=== PATIENT | female | born 1945 | race Caucasian/White ===

== ENCOUNTER 2017-07-05 13:03 | Outpatient (CLI) | payer MEDICARE ==
[2017-07-05 14:35] LABS: Hemoglobin 11.9 g/dL (12.0-16.0); Mean Corpuscular HGB CONC 33.9 g/dL (32.0-36.0); Mean Corpuscular Hemoglobin 30.4 pg (27.0-31.0); Mean Corpuscular Volume 89.7 fl (81.0-99.0); Mean Platelet Volume 7.4 fL (7.4-10.4); Platelet Count 373 thou/uL (130-400); RBC Distribution Width 12.8 % (11.5-14.5); White Blood Cell (WBC) Count 10.6 thou/uL (4.8-10.8)
[2017-07-05 14:40] LABS: INR-International Normal Ratio 1.8; Prothrombin Time 21.1 SEC (12.0-14.7)
[2017-07-05 15:03] LABS: Anion Gap 12 mmol/L (10-20); BUN (Urea Nitrogen) 20 mg/dL (9.8-20.1); Calc. Creatinine Clearance 0 mL/min (70-130); Calcium 9.1 mg/dL (7.8-10.44); Carbon Dioxide 28 mmol/L (23-31); Chloride 102 mmol/L (98-107); Estimated GFR-MDRD 84; Glucose 81 mg/dL (83-110); Potassium 4.2 mmol/L (3.5-5.1); Sodium 138 mmol/L (136-145)
--- NOTE | 2017-07-05 15:54 | EKG ---
Test Reason : Blood Pressure : / mmHG Vent. Rate : 060 BPM Atrial Rate : 060 BPM P-R Int : 152 ms QRS Dur : 086 ms QT Int : 448 ms P-R-T Axes : 033 008 037 degrees QTc Int : 448 ms Sinus rhythm with Premature supraventricular complexes Anterior infarct , age undetermined cannot be excluded Abnormal ECG Confirmed by MILADY DORAN ([id number]) on 07/05/2017 3:53:08 PM Referred By: GUILLERMINA Confirmed By:MILADY DORAN
== END 2017-07-05 13:04 | disposition home or self-care (01) ==
LOC: LABBT 13:03
PROVIDERS: ATTEND Internal Medicine Cardiovascular Disease
DX: Z01.818 Encounter for other preprocedural examination (principal); I48.91 Unspecified atrial fibrillation
CPT/HCPCS: 80048; 85027; 85610; 85730; 93005; 93010

== ENCOUNTER 2017-07-07 06:47 | Day surgery (SDC) | payer MEDICARE ==
[2017-07-05 13:25] VITALS: BMI 36.1
[2017-07-07] MEDS ORDERED: Lidocaine 1% (PF) 30 ML VIAL ONE (10:07)
[2017-07-07] MEDS ORDERED: PHENYLEPHRINE-NS 100 MCG/ML 10 ML SYRINGE ONE ×2 (10:16→15:06)
[2017-07-07] MEDS ORDERED: Phenylephrine HCL 10 MG/ML VIAL ONE (10:16)
[2017-07-07] MEDS ORDERED: Fentanyl 100 MCG/2 ML VIAL ONE ×2 (10:16→13:49)
[2017-07-07] MEDS ORDERED: Furosemide 40 MG/4 ML VIAL ONE (10:36)
[2017-07-07] MEDS ORDERED: Heparin 10,000 UNITS/1 ML VIAL ONE (10:36)
[2017-07-07] MEDS ORDERED: Protamine Sulfate 50 MG/5 ML VIAL ONE (10:36)
[2017-07-07] MEDS ORDERED: Isoproterenol 0.2 MG/1 ML AMP ONE ×2 (11:30→11:34)
[2017-07-07] MEDS ORDERED: Promethazine HCl 25 MG/ML VIAL SLOW IVP PRN (13:11)
[2017-07-07] MEDS ORDERED: Ondansetron HCl/PF 4 MG/2 ML Vial IVP PRN ×2 (13:11→14:34)
[2017-07-07] MEDS ORDERED: Morphine Sulfate 2 MG/ML SYRINGE SLOW IVP PRN (13:11)
[2017-07-07] MEDS ORDERED: Promethazine HCl 25 MG/ML VIAL ONE (13:26)
--- NOTE | 2017-07-07 14:26 | OP ---
DATE OF PROCEDURE: 07/07/2017 ELECTROPHYSIOLOGY PROCEDURE NOTE PROCEDURES: 1. Comprehensive EP testing with three dimensional mapping and ablation of atrial fibrillation. 2. Transseptal catheterization x2. 3. Intracardiac echocardiography. 4. Cardiac medication infusion. CLINICAL INDICATION: Refractory recurrent atrial arrhythmias despite previous ablation and previous antiarrhythmic suppression. COMPUTER CONSOLE OPERATOR: Marky Epps M.D. ASA CLASSIFICATION: III. ANESTHESIA: General endotracheal per Anesthesiology. ADDITIONAL CARDIAC MEDICATIONS: Isoproterenol 10 mcg per minute infusion. Total heparin given 14,00 0 units. Total protamine given 40 mg. ACUTE COMPLICATIONS: None apparent. METHODS: After informed consent was obtained, the patient was taken to the EP lab in the fasting sta te. Both groins were prepped and draped using ultrasound guidance, the right and left femoral veins were accessed and wires were inserted into the central venous systems and 11 [place] and 8 [place] sainz ths were placed in the left groin. Two 8 [place] sheaths were placed in right groin. All 8 [place] sh eaths were then replaced by long sheath for catheter stability. A circular and ablation catheter wer e placed in the right groin and advanced to the right atrium and the coronary sinus. A 3D map was ob tained. An intracardiac echo probe was placed in the left groin and advanced to the right atrium and right ventricle for imaging. A 20-pole catheter was placed in the left groin and advanced into the coronary sinus for imaging. An esophageal temperature probe was placed in the esophagus, co-located with a sensored catheter for positioning and location within a 3D system. The patient then underwent heparinization and transseptal catheterization was performed on two occasions. This used ultrasound and 3D mapping guidance and 3D map was obtained at the left atrium. The patient had isolated veins from the previous ablation; however, the posterior wall still had some antral reconnection which was re-ablated. Afterwards, isoproterenol was administered and consistent PACs were seen from the rivers ry sinus, although no sustained arrhythmias were seen there. This was empirically ablated. The dist al CS was isolated and the proximal CS was debulked. No further arrhythmias were seen. Catheter was then withdrawn. Heparin was reversed. Sheaths were pulled. Hemostasis was achieved with suture cl osure. RESULTS: 1. Baseline intervals, TX interval 153 milliseconds, QRS interval 82 milliseconds, QT interval 455 m illiseconds, HV interval 43 milliseconds. 2. Atrial function. Patient had intact isolation of the pulmonary veins from previous ablation ____ _. On the posterior wall, the patient still had reconnection of this area which was re-isolated. Con sistent firing was seen from the coronary sinus which was also ablated and isolated as described in m ethod section. IMPRESSION: 1. Successful re-isolation of the posterior wall, antral aspects of the pulmonary veins. 2. Successful distal CS ablation with debulking of the remainder of the CS. RECOMMENDATION: Continue with oral anticoagulation for 3 months.
[2017-07-07] MEDS ORDERED: Bisacodyl 10 MG SUPP PR PRN (14:34)
[2017-07-07] MEDS ORDERED: Mag-Al 1200 mg/1200 mg/30 ML UDCUP PO PRN (14:34)
[2017-07-07] MEDS ORDERED: Bisacodyl 5 MG TAB PO PRN (14:34)
[2017-07-07] MEDS ORDERED: Temazepam 15 MG CAP PO PRN (14:34)
[2017-07-07] MEDS ORDERED: Nitroglycerin 0.4 MG TAB (25 Tab Bottle) SL PRN (14:34)
[2017-07-07] MEDS ORDERED: Silver Sulfadiazine 1% Cream 50 GM JAR TOP PRN (14:34)
[2017-07-07] MEDS ORDERED: Acetaminophen 325 MG TAB PO PRN (14:34)
[2017-07-07] MEDS ORDERED: diphenhydrAMINE 25 MG CAP PO PRN (14:34)
[2017-07-07] MEDS ORDERED: cloNIDine 0.1 MG TAB PO PRN (14:38)
[2017-07-07] MEDS ORDERED: Melatonin 3 MG TAB PO PRN (14:43)
[2017-07-07] MEDS ORDERED: Lisinopril 20 MG TAB PO PRN (14:43)
[2017-07-07] MEDS ORDERED: tiZANidine HCl 4 MG TAB PO PRN (14:47)
[2017-07-07] MEDS ORDERED: Ondansetron HCl/PF 4 MG/2 ML Vial ONE (15:06)
[2017-07-07] MEDS ORDERED: Heparin 30,000 units/30 ml VIAL ONE (15:06)
[2017-07-07] MEDS ORDERED: Dexamethasone 20 MG/5 ML VIAL ONE (15:06)
[2017-07-07] MEDS ORDERED: Propofol 200 MG/20 ML VIAL ONE (15:06)
[2017-07-07] MEDS ORDERED: Potassium Chloride 20 MEQ TAB PO SCH (16:00)
[2017-07-07] MEDS ORDERED: Furosemide 40 MG/4 ML VIAL SLOW IVP SCH (16:00)
[2017-07-07] MEDS: HYDROcodone/Acetaminophen 5/325 mg Tablet PO PRN ×2 (16:04→23:42)
[2017-07-07] MEDS: traMADol HCl 50 MG TAB PO PRN (19:07)
[2017-07-07] MEDS: Hydroxychloroquine Sulfate 200 MG TAB PO SCH (20:38)
[2017-07-07] MEDS: sulfaSALAzine 500 MG TAB PO SCH (20:38)
[2017-07-07] MEDS: Amlodipine 5 MG TAB PO SCH (20:43)
[2017-07-07] MEDS ORDERED: metFORMIN XR 500 MG TAB PO SCH (21:00)
[2017-07-07] MEDS ORDERED: Atorvastatin Calcium 20 MG TAB PO SCH (21:00)
[2017-07-08] MEDS: traMADol HCl 50 MG TAB PO PRN (03:21)
[2017-07-08] MEDS ORDERED: Levothyroxine Sodium 25 MCG TAB PO SCH (06:00)
[2017-07-08 08:25] VITALS: BP 138/65; TEMP 98.5
[2017-07-08] MEDS ORDERED: Aspirin 81 mg Enteric Coated Tablet PO SCH (09:00)
[2017-07-08] MEDS ORDERED: Potassium Chloride 10 MEQ TAB PO SCH (09:00)
[2017-07-08] MEDS ORDERED: Rivaroxaban 10 MG TAB PO SCH (09:00)
[2017-07-08] MEDS ORDERED: Folic Acid 1 MG TAB PO SCH (09:00)
[2017-07-08] MEDS ORDERED: Furosemide 40 MG TAB PO SCH (09:00)
[2017-07-08] MEDS: Amlodipine 5 MG TAB PO SCH (09:08)
[2017-07-08] MEDS: Hydroxychloroquine Sulfate 200 MG TAB PO SCH (09:09)
[2017-07-08] MEDS: sulfaSALAzine 500 MG TAB PO SCH (09:10)
[2017-07-08] MEDS: HYDROcodone/Acetaminophen 5/325 mg Tablet PO PRN (09:16)
--- NOTE | 2017-07-08 22:30 | DIS ---
DATE OF SERVICE: 07/08/2017 ADMITTING DIAGNOSES: 1. Persistent atrial fibrillation. A. Prior pulmonary venous isolation procedure 10/03/[address] Epps. B. Atypical atrial flutter, failing sotalol therapy prompting a repeat pulmonary venous isolation pr luis eduardodure on 07/07/2017 with re-isolation of the posterior wall. C. Ablation of the coronary sinus, premature atrial contractions. The patient remained in sinus rhy thm throughout the procedure. HOSPITAL COURSE: Ms. Leach remained stable overnight after her procedure. She had no significant g roin oozing issues, which . There is no stroke-like symptoms. No . No fevers, chills, or coughs. No chest pains. PHYSICAL EXAMINATION: VITAL SIGNS: Blood pressure is 132/65, pulse 74, respirations 16, temperature 98.5 degrees Fahrenhei t, O2 sats are 95% on room air. GENERAL: Reveals alert and oriented woman in no apparent distress. NECK: No jugular venous distention. CHEST: Coarse without crackles. HEART: Sounds are regular to rate and rhythm. No murmur, gallop, or rub. ABDOMEN: Benign. Bowel sounds present. EXTREMITIES: Lower extremities without edema, clubbing, or cyanosis. DATABASE: Telemetry strips reveal sinus rhythm. No significant ST-T changes. Infrequent PACs. LABORATORY DATA: None new. ASSESSMENT AND PLAN: Mrs. Leach is a pleasant 71-year-old woman, undergoing a re-do left atrial abl ation procedure yesterday, tolerated the procedure well. She is back on her anticoagulants and resum ing all her prior medications as well. She was given prescriptions for Lasix 4 mg daily, potassium 2 0 mEq daily for 3 days and then as needed, Carafate 1 g for q.6 hours for 14 days and Protonix 40 mg daily. We advised her though to stop sotalol, which could be resumed if necessary for rhythm control in the future. Routine followup in the office in 6 weeks is requested. All questions of patient's, nursing staff, and the family were answered. I spent a total of 45 minutes for completing the above.
[2017-07-13] MEDS ORDERED: Methotrexate Sodium 2.5 MG TAB PO SCH (09:00)
== END 2017-07-08 14:06 | disposition home or self-care (01) ==
LOC: CCL 06:47 → 2SW 15:26 → CCL 07-08 14:06
PROVIDERS: ATTEND Internal Medicine Cardiovascular Disease
PROC: 4A023FZ Measurement of Cardiac Rhythm, Percutaneous Approach (ICD-10-PCS; principal; 2017-07-07)
PROC: 02K83ZZ Map Conduction Mechanism, Percutaneous Approach (ICD-10-PCS; 2017-07-07)
DX: I48.1 Persistent atrial fibrillation (principal); I25.10 Atherosclerotic heart disease of native coronary artery without angina pectoris; I10 Essential (primary) hypertension; E78.2 Mixed hyperlipidemia; I65.23 Occlusion and stenosis of bilateral carotid arteries; E03.9 Hypothyroidism, unspecified; M06.9 Rheumatoid arthritis, unspecified
CPT/HCPCS: 76942; 82962; 85347 ×2; 93005; 93613; 93623; 93653; 93662; 96374 ×2; C1731; C1732 ×3; C1759; C1769; 36416; A4216; J1100; J1644; J1940; J2001; J2370; J2405; J2550; J2704; J2720; J3010

== ENCOUNTER 2019-10-11 10:54 | Outpatient (CLI) | payer MEDICARE ==
--- NOTE | 2019-10-11 11:56 | MMO ---
Bilateral MAMMO Bilat Screen [facility]. CLINICAL HISTORY: Patient is 73 years old and is seen for screening. The patient has no family history of breast cancer. The patient has no personal history of cancer. VIEWS: The views performed were: bilateral craniocaudal with tomosynthesis and bilateral mediolateral oblique with tomosynthesis. FILMS COMPARED: The present examination has been compared to prior imaging studies performed at [facility] on 05/20/2013, and at [facility] on 12/15/2016. This study has been interpreted with the assistance of computer-aided detection. MAMMOGRAM FINDINGS: There are scattered fibroglandular densities. Finding 1: There are stable benign appearing calcifications seen in both breasts. Finding 2: There are stable intramammary lymph nodes seen in both breasts. There are no suspicious masses, suspicious calcifications, or new areas of architectural distortion. IMPRESSION: THERE IS NO MAMMOGRAPHIC EVIDENCE OF MALIGNANCY. A ROUTINE FOLLOW-UP MAMMOGRAM IN 1 YEAR IS RECOMMENDED. THE RESULTS OF THIS EXAM WERE SENT TO THE PATIENT. ACR BI-RADS Category 2 - Benign finding MAMMOGRAPHY NOTE: 1. A negative mammogram report should not delay a biopsy if a dominant of clinically suspicious mass is present. 2. Approximately 10% to 15% of breast cancers are not detected by mammography. 3. Adenosis and dense breasts may obscure an underlying neoplasm. Reported by: JOSUE YING MD Electonically Signed: [id number]
== END 2019-10-11 10:55 | disposition home or self-care (01) ==
LOC: BICMAMMO 10:54
PROVIDERS: ATTEND Physician Assistant
DX: Z12.31 Encounter for screening mammogram for malignant neoplasm of breast (principal)
CPT/HCPCS: 77063; 77067

== ENCOUNTER 2021-08-18 13:14 | Outpatient (CLI) | payer MEDICARE, OTHER ==
[~2021-08-18 13:14] MED LIST: Magnevist 469MG/ML 20 ML VIAL ONE
== END 2021-08-18 13:15 | disposition home or self-care (01) ==
LOC: TBSIIMAG 13:14
PROVIDERS: ATTEND Neurological Surgery
DX: H93.A9 Pulsatile tinnitus, unspecified ear (principal); J34.89 Other specified disorders of nose and nasal sinuses
CPT/HCPCS: 70553; A9579

== ENCOUNTER 2022-03-14 11:06 | Inpatient (IN) | payer MEDICARE, OTHER ==
[2022-03-14 16:06] LABS: #Eosinphils 0.2 thou/uL (0.0-0.7); #Lymphocytes 1.7 thou/uL (1.20-3.40); #Monocytes 1.5 thou/uL (0.11-0.59); #Neutrophils 7.9 thou/uL (1.40-6.50); %Basophils 0.3 % (0.0-1.0); %Eosinophils 2.1 % (0.0-10.0); %Lymphocytes 14.9 % (21.0-51.0); %Monocytes 12.8 % (0.0-10.0); %Neutrophils 69.8 % (42.0-75.0); Hemoglobin 10.8 g/dL (12.0-16.0); Mean Corpuscular HGB CONC 34.3 g/dL (32.0-36.0); Mean Corpuscular Hemoglobin 33.5 pg (27.0-31.0); Mean Corpuscular Volume 97.7 fl (78.0-98.0); Mean Platelet Volume 8.1 fL (7.4-10.4); Platelet Count 306 thou/uL (130-400); RBC Distribution Width 12.9 % (11.5-14.5); Red Blood Cell (RBC) Count 3.23 mill/uL (4.20-5.40); White Blood Cell (WBC) Count 11.3 thou/uL (4.8-10.8)
[2022-03-14 16:25] LABS: ALT (SGPT) 10 U/L (8-55); AST (SGOT) 14 U/L (5-34); Albumin 3.9 g/dL (3.4-4.8); Alkaline Phosphatase 65 U/L (40-110); Anion Gap 17 mmol/L (10-20); BUN (Urea Nitrogen) 23 mg/dL (9.8-20.1); Bilirubin, Total 0.4 mg/dL (0.2-1.2); Calc. Creatinine Clearance 0 mL/min (70-130); Calcium 7.7 mg/dL (7.8-10.44); Carbon Dioxide 27 mmol/L (23-31); Chloride 103 mmol/L (98-107); Estimated GFR 60; Globulin 2.5 g/dL (2.4-3.5); Glucose 84 mg/dL (83-110); Potassium 4.1 mmol/L (3.5-5.1); Protein, Total 6.4 g/dL (5.8-8.1); Sodium 143 mmol/L (136-145)
[2022-03-14] MEDS ORDERED: HYDROcodone/Acetaminophen 5/325 mg Tablet PO PRN (17:28)
[2022-03-14] MEDS ORDERED: HumaLOG 300 UNITS/3 ML VIAL SC PRN (17:33)
[2022-03-14] MEDS ORDERED: Dextrose 5% in Water 1,000 ML IV PRN (17:33)
[2022-03-14] MEDS ORDERED: Dextrose 50% Abboject 50 ML SYRINGE SLOW IVP PRN (17:33)
[2022-03-14] MEDS ORDERED: Ketorolac Tromethamine 30 MG/ML VIAL ONE ×2 (17:45→17:59)
[2022-03-14 20:39] VITALS: BMI 39.5
[2022-03-15] MEDS ORDERED: Morphine 4 MG/ML VIAL SLOW IVP PRN (03:37)
[2022-03-15] MEDS: Ondansetron PF 4 MG/2 ML Vial IVP PRN (03:53)
[2022-03-15] MEDS: Acetaminophen 325 MG TAB PO PRN (03:57)
[2022-03-15 06:44] LABS: Anion Gap 16 mmol/L (10-20); BUN (Urea Nitrogen) 32 mg/dL (9.8-20.1); Calc. Creatinine Clearance 68 mL/min (70-130); Calcium 7.4 mg/dL (7.8-10.44); Carbon Dioxide 26 mmol/L (23-31); Chloride 103 mmol/L (98-107); Estimated GFR 48; Glucose 100 mg/dL (83-110); Potassium 3.9 mmol/L (3.5-5.1); Sodium 141 mmol/L (136-145)
[2022-03-15 06:53] LABS: #Eosinphils 0.2 thou/uL (0.0-0.7); #Lymphocytes 1.2 thou/uL (1.20-3.40); #Monocytes 0.9 thou/uL (0.11-0.59); #Neutrophils 7.8 thou/uL (1.40-6.50); %Basophils 0.3 % (0.0-1.0); %Eosinophils 2.3 % (0.0-10.0); %Monocytes 8.6 % (0.0-10.0); %Neutrophils 76.8 % (42.0-75.0); Hemoglobin 8.9 g/dL (12.0-16.0); Mean Corpuscular HGB CONC 32.2 g/dL (32.0-36.0); Mean Corpuscular Hemoglobin 31.7 pg (27.0-31.0); Mean Corpuscular Volume 98.5 fl (78.0-98.0); Mean Platelet Volume 7.9 fL (7.4-10.4); Platelet Count 318 thou/uL (130-400); Red Blood Cell (RBC) Count 2.81 mill/uL (4.20-5.40); White Blood Cell (WBC) Count 10.1 thou/uL (4.8-10.8)
[2022-03-15] MEDS ORDERED: Metoprolol Tartrate 5 MG/5 ML VIAL IVP PRN (08:41)
[2022-03-15] MEDS ORDERED: Aspirin 325 mg Enteric Coated Tablet PO SCH (08:45)
[2022-03-15] MEDS ORDERED: Lactated Ringer's 250 ML IV SCH (08:45)
[2022-03-15] MEDS ORDERED: Enoxaparin Sodium 40 MG/0.4 ML SYRINGE SC SCH (09:00)
[2022-03-15] MEDS: Aspirin 81 mg Enteric Coated Tablet PO SCH (09:36)
[2022-03-15] MEDS: Metoprolol Tartrate 5 MG/5 ML VIAL IVP SCH ×2 (09:38→09:43)
[2022-03-15] MEDS: Enoxaparin Sodium 100 MG/ML SYRINGE SC SCH ×2 (09:43→20:35)
[2022-03-15] MEDS ORDERED: Methotrexate Sodium 2.5 MG TAB PO SCH (10:15)
[2022-03-15] MEDS ORDERED: HYDROcodone/Acetaminophen 5/325 mg Tablet PO PRN (11:03)
[2022-03-15] MEDS ORDERED: Magnesium 2 GM/50 ML(in water) 2 GM in Premix Bag 1 BAG IVPB SCH ×2 (12:45→18:00)
[2022-03-15] MEDS ORDERED: Electrolyte Replacement Protocol 1 EACH FS SCH (13:30)
[2022-03-15] MEDS ORDERED: Magnesium Sulfate In Water 4 GM in Premix Bag 1 BAG IVPB SCH (14:15)
[2022-03-15] MEDS ORDERED: Electrolyte Replacement Protocol FS PRN (14:15)
[2022-03-15] MEDS ORDERED: Magnesium Sulfate 4 GM in Sodium Chloride 0.9% 250 ML 250 ML IVPB SCH (14:30)
[2022-03-15] MEDS: HYDROcodone/Acetaminophen 5/325 mg Tablet PO PRN ×2 (14:56→20:33)
[2022-03-15] MEDS: Vancomycin 1.5 GRAM/300 ML BAG 1.5 GM in Premix Bag 1 BAG IVPB SCH (15:22)
[2022-03-15] MEDS: Metoprolol Tartrate 25 MG TAB PO SCH (20:34)
[2022-03-15] MEDS: Atorvastatin Calcium 20 MG TAB PO SCH (20:35)
[2022-03-15] MEDS: Cefepime 1 GM in Sodium Chloride 0.9% 100 ML IVPB SCH (20:35)
[2022-03-15] MEDS: metFORMIN XR 500 MG TAB PO SCH (20:58)
[2022-03-15] MEDS ORDERED: Vancomycin 1 GM in Premix Bag 1 BAG IVPB SCH (21:00)
[2022-03-16] MEDS: HYDROcodone/Acetaminophen 5/325 mg Tablet PO PRN ×2 (04:34→10:29)
[2022-03-16] MEDS: Levothyroxine Sodium 25 MCG TAB PO SCH (04:35)
[2022-03-16 04:57] LABS: #Eosinphils 0.2 thou/uL (0.0-0.7); #Lymphocytes 0.8 thou/uL (1.20-3.40); #Neutrophils 8.7 thou/uL (1.40-6.50); %Basophils 0.5 % (0.0-1.0); %Eosinophils 1.7 % (0.0-10.0); %Lymphocytes 7.2 % (21.0-51.0); %Monocytes 8.9 % (0.0-10.0); %Neutrophils 81.7 % (42.0-75.0); Hemoglobin 9.5 g/dL (12.0-16.0); Mean Corpuscular HGB CONC 32.5 g/dL (32.0-36.0); Mean Corpuscular Volume 98.5 fl (78.0-98.0); Mean Platelet Volume 8.2 fL (7.4-10.4); Platelet Count 321 thou/uL (130-400); RBC Distribution Width 12.9 % (11.5-14.5); Red Blood Cell (RBC) Count 2.95 mill/uL (4.20-5.40); White Blood Cell (WBC) Count 10.7 thou/uL (4.8-10.8)
[2022-03-16 05:20] LABS: Magnesium 2.1 mg/dL (1.6-2.6); Phosphorus 2.8 mg/dL (2.3-4.7)
[2022-03-16 05:24] LABS: ALT (SGPT) 9 U/L (8-55); AST (SGOT) 12 U/L (5-34); Albumin 3.4 g/dL (3.4-4.8); Alkaline Phosphatase 60 U/L (40-110); Anion Gap 13 mmol/L (10-20); BUN (Urea Nitrogen) 27 mg/dL (9.8-20.1); Bilirubin, Total 0.5 mg/dL (0.2-1.2); Calc. Creatinine Clearance 93 mL/min (70-130); Calcium 7.8 mg/dL (7.8-10.44); Carbon Dioxide 27 mmol/L (23-31); Chloride 102 mmol/L (98-107); Estimated GFR 71; Globulin 2.8 g/dL (2.4-3.5); Glucose 113 mg/dL (83-110); Protein, Total 6.2 g/dL (5.8-8.1); Sodium 138 mmol/L (136-145)
[2022-03-16] MEDS ORDERED: Diclofenac Sodium 50 MG DR TAB PO PRN (08:19)
[2022-03-16] MEDS: Cefepime 1 GM in Sodium Chloride 0.9% 100 ML IVPB SCH ×2 (09:04→21:11)
[2022-03-16] MEDS: Enoxaparin Sodium 100 MG/ML SYRINGE SC SCH ×2 (09:04→21:12)
[2022-03-16] MEDS: Metoprolol Tartrate 25 MG TAB PO SCH ×2 (09:05→21:12)
[2022-03-16] MEDS: Folic Acid 1 MG TAB PO SCH (09:05)
[2022-03-16] MEDS: Aspirin 81 mg Enteric Coated Tablet PO SCH (09:05)
[2022-03-16] MEDS: metFORMIN XR 500 MG TAB PO SCH ×2 (09:06→21:12)
[2022-03-16] MEDS: Hydroxychloroquine Sulfate 200 MG TAB PO SCH (09:07)
[2022-03-16] MEDS: Cholecalciferol 1,000 UNITS (25 MCG) TAB PO SCH (09:16)
[2022-03-16] MEDS: Vancomycin 1.5 GRAM/300 ML BAG 1.5 GM in Premix Bag 1 BAG IVPB SCH (14:33)
[2022-03-16] MEDS: Acetaminophen 325 MG TAB PO PRN (15:20)
[2022-03-16] MEDS: Morphine 4 MG/ML VIAL SLOW IVP PRN ×2 (16:14→22:43)
[2022-03-16] MEDS: Ondansetron PF 4 MG/2 ML Vial IVP PRN ×2 (16:14→22:43)
[2022-03-16] MEDS ORDERED: predniSONE 20 MG TAB PO SCH (17:30)
[2022-03-16] MEDS: Atorvastatin Calcium 20 MG TAB PO SCH (21:12)
[2022-03-17 04:27] LABS: #Lymphocytes 0.3 thou/uL (1.20-3.40); #Monocytes 0.4 thou/uL (0.11-0.59); #Neutrophils 9.1 thou/uL (1.40-6.50); %Basophils 0.2 % (0.0-1.0); %Eosinophils 0.5 % (0.0-10.0); %Lymphocytes 3.2 % (21.0-51.0); %Neutrophils 92.2 % (42.0-75.0); Hemoglobin 9.1 g/dL (12.0-16.0); Mean Corpuscular HGB CONC 32.8 g/dL (32.0-36.0); Mean Corpuscular Hemoglobin 32.1 pg (27.0-31.0); Mean Corpuscular Volume 97.7 fl (78.0-98.0); Platelet Count 323 thou/uL (130-400); RBC Distribution Width 12.7 % (11.5-14.5); Red Blood Cell (RBC) Count 2.84 mill/uL (4.20-5.40); White Blood Cell (WBC) Count 9.8 thou/uL (4.8-10.8)
[2022-03-17 04:46] LABS: ALT (SGPT) 11 U/L (8-55); AST (SGOT) 11 U/L (5-34); Albumin 3.4 g/dL (3.4-4.8); Alkaline Phosphatase 63 U/L (40-110); Anion Gap 12 mmol/L (10-20); BUN (Urea Nitrogen) 23 mg/dL (9.8-20.1); Bilirubin, Total 0.4 mg/dL (0.2-1.2); Calc. Creatinine Clearance 93 mL/min (70-130); Calcium 8.1 mg/dL (7.8-10.44); Carbon Dioxide 28 mmol/L (23-31); Chloride 102 mmol/L (98-107); Estimated GFR 71; Globulin 2.4 g/dL (2.4-3.5); Glucose 146 mg/dL (83-110); Potassium 5.4 mmol/L (3.5-5.1); Protein, Total 5.8 g/dL (5.8-8.1); Sodium 137 mmol/L (136-145)
[2022-03-17] MEDS: Levothyroxine Sodium 25 MCG TAB PO SCH (05:39)
[2022-03-17] MEDS: predniSONE 20 MG TAB PO SCH (08:51)
[2022-03-17] MEDS: Folic Acid 1 MG TAB PO SCH (08:52)
[2022-03-17] MEDS: Aspirin 81 mg Enteric Coated Tablet PO SCH (08:52)
[2022-03-17] MEDS: Metoprolol Tartrate 25 MG TAB PO SCH ×2 (08:52→21:12)
[2022-03-17] MEDS: metFORMIN XR 500 MG TAB PO SCH ×2 (08:53→21:10)
[2022-03-17] MEDS: Hydroxychloroquine Sulfate 200 MG TAB PO SCH (08:53)
[2022-03-17] MEDS: Cefepime 1 GM in Sodium Chloride 0.9% 100 ML IVPB SCH (08:53)
[2022-03-17] MEDS: Enoxaparin Sodium 100 MG/ML SYRINGE SC SCH (08:54)
[2022-03-17] MEDS: Cholecalciferol 1,000 UNITS (25 MCG) TAB PO SCH (08:58)
[2022-03-17] MEDS ORDERED: Morphine 4 MG/ML VIAL SLOW IVP PRN (10:32)
[2022-03-17] MEDS: HYDROcodone/Acetaminophen 5/325 mg Tablet PO PRN ×3 (11:18→21:11)
[2022-03-17] MEDS: Atorvastatin Calcium 20 MG TAB PO SCH (21:11)
[2022-03-17] MEDS: Apixaban 5 MG TAB PO SCH (21:14)
[2022-03-18] MEDS ORDERED: diphenhydrAMINE 25 MG CAP PO SCH (03:30)
[2022-03-18] MEDS: Levothyroxine Sodium 25 MCG TAB PO SCH (04:48)
[2022-03-18] MEDS: HYDROcodone/Acetaminophen 5/325 mg Tablet PO PRN (04:48)
[2022-03-18 05:36] LABS: #Eosinphils 0.1 thou/uL (0.0-0.7); #Lymphocytes 1.2 thou/uL (1.20-3.40); #Monocytes 1.2 thou/uL (0.11-0.59); #Neutrophils 10.4 thou/uL (1.40-6.50); %Basophils 0.4 % (0.0-1.0); %Eosinophils 1.1 % (0.0-10.0); %Lymphocytes 9.4 % (21.0-51.0); %Monocytes 9.3 % (0.0-10.0); %Neutrophils 79.8 % (42.0-75.0); Hemoglobin 9.4 g/dL (12.0-16.0); Mean Corpuscular Hemoglobin 33.1 pg (27.0-31.0); Platelet Count 368 thou/uL (130-400); RBC Distribution Width 12.6 % (11.5-14.5); Red Blood Cell (RBC) Count 2.85 mill/uL (4.20-5.40); White Blood Cell (WBC) Count 13.1 thou/uL (4.8-10.8)
[2022-03-18 06:08] LABS: ALT (SGPT) 13 U/L (8-55); AST (SGOT) 13 U/L (5-34); Albumin 3.3 g/dL (3.4-4.8); Alkaline Phosphatase 70 U/L (40-110); Anion Gap 11 mmol/L (10-20); BUN (Urea Nitrogen) 23 mg/dL (9.8-20.1); Bilirubin, Total 0.2 mg/dL (0.2-1.2); Calc. Creatinine Clearance 96 mL/min (70-130); Carbon Dioxide 26 mmol/L (23-31); Chloride 103 mmol/L (98-107); Estimated GFR 74; Glucose 96 mg/dL (83-110); Potassium 4.6 mmol/L (3.5-5.1); Protein, Total 6.3 g/dL (5.8-8.1); Sodium 135 mmol/L (136-145); Uric Acid 7.3 mg/dL (2.6-6.0)
[2022-03-18] MEDS: predniSONE 20 MG TAB PO SCH (08:53)
[2022-03-18] MEDS: Apixaban 5 MG TAB PO SCH (08:54)
[2022-03-18] MEDS: Folic Acid 1 MG TAB PO SCH (08:54)
[2022-03-18] MEDS: Hydroxychloroquine Sulfate 200 MG TAB PO SCH (08:54)
[2022-03-18] MEDS: metFORMIN XR 500 MG TAB PO SCH (08:54)
[2022-03-18] MEDS: Aspirin 81 mg Enteric Coated Tablet PO SCH (08:55)
[2022-03-18] MEDS: Cholecalciferol 1,000 UNITS (25 MCG) TAB PO SCH (08:55)
[2022-03-18] MEDS: Metoprolol Tartrate 25 MG TAB PO SCH (14:05)
[2022-03-18 15:15] VITALS: BP 173/90; TEMP 98.5
[2022-03-19] MEDS ORDERED: Methotrexate Sodium 2.5 MG TAB PO SCH (12:00)
== END 2022-03-18 16:30 | disposition home or self-care (01) | DRG 554 ==
LOC: ERS 11:06 → T4-A 17:36 → 2NO 03-15 14:25 → SURG A 03-17 17:54
PROVIDERS: ADMIT Internal Medicine; ATTEND Family Medicine
DX: M10.9 Gout, unspecified (principal); D84.9 Immunodeficiency, unspecified; I48.92 Unspecified atrial flutter; R78.81 Bacteremia; M06.9 Rheumatoid arthritis, unspecified; E11.9 Type 2 diabetes mellitus without complications; I10 Essential (primary) hypertension; Z96.651 Presence of right artificial knee joint; E66.9 Obesity, unspecified; E03.9 Hypothyroidism, unspecified; Z20.822 Contact with and (suspected) exposure to COVID-19; I25.10 Atherosclerotic heart disease of native coronary artery without angina pectoris; I48.0 Paroxysmal atrial fibrillation; I48.91 Unspecified atrial fibrillation; Z95.5 Presence of coronary angioplasty implant and graft; Z98.890 Other specified postprocedural states; Z87.891 Personal history of nicotine dependence; Z79.82 Long term (current) use of aspirin; Z79.84 Long term (current) use of oral hypoglycemic drugs; Z79.899 Other long term (current) drug therapy; Z68.39 Body mass index [BMI] 39.0-39.9, adult
CPT/HCPCS: 36415; 36416; 71045; 80048; 80053; 83735; 83880; 84100; 84145; 84443; 84484; 84550; 85025; 85652; 86140; 87040; 93005; 93010; 93970; 96372; J0692; J1650; J1885; J2270; J2405; J3370; J3475; J3490; J7120; J7512; U0003; U0005

== ENCOUNTER 2022-03-22 14:13 | Inpatient (IN) | payer OTHER ==
[2022-03-22] MEDS ORDERED: Adenosine 6 MG/2 ML VIAL ONE ×2 (14:51→16:09)
[2022-03-22] MEDS ORDERED: FENTANYL 50 MCG/ML 1 ML VIAL ONE (15:16)
[2022-03-22 15:48] LABS: Hemoglobin 11.6 g/dL (12.0-16.0); Mean Corpuscular HGB CONC 33.2 g/dL (32.0-36.0); Mean Corpuscular Hemoglobin 32.5 pg (27.0-31.0); Mean Platelet Volume 7.7 fL (7.4-10.4); Platelet Count 454 10x3/uL (130-400); RBC Distribution Width 13.5 % (11.5-14.5); Red Blood Cell (RBC) Count 3.57 mill/uL (4.20-5.40); White Blood Cell (WBC) Count 15.2 10x3/uL (4.8-10.8)
[2022-03-22 16:11] LABS: Band 2 % (5-11); Lymphocytes 19 % (21-51); MDiff Complete? YES; Monocytes 3 % (0-10); Myelocyte 5 % (0-0); Neutrophil 71 % (42-75); Platelet Morphology Comment Appears Increased; RBC Morphology Normal
[2022-03-22 16:22] LABS: Bilirubin, Total 0.4 mg/dL (0.2-1.2); Calcium 8.4 mg/dL (7.8-10.44); Chloride 103 mmol/L (98-107); Potassium 4.8 mmol/L (3.5-5.1); Sodium 136 mmol/L (136-145)
[2022-03-22 16:29] LABS: INR-International Normal Ratio 1.2; PTT 32.9 sec (22.9-36.1); Prothrombin Time 15.7 sec (12.0-14.7)
[2022-03-22 16:32] LABS: Albumin 3.3 g/dL (3.4-4.8)
[2022-03-22 16:35] LABS: Glucose 117 mg/dL (83-110); Protein, Total 6.3 g/dL (5.8-8.1)
[2022-03-22 16:36] LABS: Anion Gap 19 mmol/L (10-20); Carbon Dioxide 19 mmol/L (23-31)
[2022-03-22 16:38] LABS: Alkaline Phosphatase 67 U/L (40-110); Calc. Creatinine Clearance 0 mL/min (70-130); Estimated GFR 59
[2022-03-22 16:39] LABS: BUN (Urea Nitrogen) 28 mg/dL (9.8-20.1)
[2022-03-22] MEDS ORDERED: Guaifenesin DM 100-10/5 ML UDCUP PO PRN (16:39)
[2022-03-22] MEDS ORDERED: Senokot S 8.6-50 MG TAB PO PRN (16:39)
[2022-03-22 16:40] LABS: AST (SGOT) 19 U/L (5-34); Magnesium 1.3 mg/dL (1.6-2.6)
[2022-03-22 16:41] LABS: ALT (SGPT) 18 U/L (8-55)
[2022-03-22] MEDS ORDERED: Melatonin 3 MG TAB PO PRN (17:48)
[2022-03-22] MEDS ORDERED: Magnesium 2 GM/50 ML BAG (IN WATER) ONE (18:59)
[2022-03-22] MEDS ORDERED: Famotidine 20 MG TAB PO SCH (21:00)
[2022-03-22] MEDS ORDERED: Famotidine/PF 20 mg/2ml Vial SLOW IVP SCH (21:00)
[2022-03-22] MEDS: metFORMIN XR 500 MG TAB PO SCH (21:41)
[2022-03-22] MEDS: Atorvastatin Calcium 20 MG TAB PO SCH (21:41)
[2022-03-22] MEDS: Apixaban 5 MG TAB PO SCH (21:41)
[2022-03-22] MEDS: Metoprolol Tartrate 25 MG TAB PO SCH (21:41)
[2022-03-22] MEDS: Fish Oil 1,000 MG CAP PO SCH (21:42)
[2022-03-22] MEDS: HYDROcodone/Acetaminophen 5/325 mg Tablet PO PRN (21:42)
[2022-03-23 03:21] VITALS: BMI 38.5
[2022-03-23] MEDS: HYDROcodone/Acetaminophen 5/325 mg Tablet PO PRN ×3 (03:43→21:43)
[2022-03-23] MEDS: Levothyroxine Sodium 25 MCG TAB PO SCH (05:55)
[2022-03-23 06:10] LABS: Anion Gap 12 mmol/L (10-20); BUN (Urea Nitrogen) 28 mg/dL (9.8-20.1); Calc. Creatinine Clearance 79 mL/min (70-130); Calcium 8.7 mg/dL (7.8-10.44); Carbon Dioxide 30 mmol/L (23-31); Chloride 102 mmol/L (98-107); Estimated GFR 58; Glucose 85 mg/dL (83-110); Potassium 4.4 mmol/L (3.5-5.1); Sodium 140 mmol/L (136-145)
[2022-03-23 06:47] LABS: Band 5 % (5-11); Hemoglobin 9.8 g/dL (12.0-16.0); Lymphocytes 18 % (21-51); MDiff Complete? YES; Mean Corpuscular HGB CONC 33.1 g/dL (32.0-36.0); Mean Corpuscular Hemoglobin 32.7 pg (27.0-31.0); Mean Corpuscular Volume 98.8 fl (78.0-98.0); Mean Platelet Volume 7.7 fL (7.4-10.4); Myelocyte 5 % (0-0); Neutrophil 72 % (42-75); Platelet Count 449 10x3/uL (130-400); RBC Distribution Width 13.2 % (11.5-14.5); Red Blood Cell (RBC) Count 2.99 mill/uL (4.20-5.40); White Blood Cell (WBC) Count 16.1 10x3/uL (4.8-10.8)
[2022-03-23] MEDS ORDERED: Sotalol HCl 80 MG TAB PO SCH (09:00)
[2022-03-23] MEDS ORDERED: Hydroxychloroquine Sulfate 200 MG TAB PO SCH (09:00)
[2022-03-23] MEDS ORDERED: FLU VACC QS2022-23(65YR UP)/PF 240 MCG/0.7 ML SYRINGE IM ONE (09:00)
[2022-03-23] MEDS ORDERED: TOFACITINIB CITRATE 10 MG PO SCH (09:00)
[2022-03-23] MEDS: Apixaban 5 MG TAB PO SCH ×2 (09:27→21:43)
[2022-03-23] MEDS: Folic Acid 1 MG TAB PO SCH (09:28)
[2022-03-23] MEDS: Metoprolol Tartrate 25 MG TAB PO SCH ×2 (09:28→21:46)
[2022-03-23] MEDS: Cholecalciferol 1,000 UNITS (25 MCG) TAB PO SCH (09:28)
[2022-03-23] MEDS: Fish Oil 1,000 MG CAP PO SCH ×3 (09:28→21:43)
[2022-03-23] MEDS: metFORMIN XR 500 MG TAB PO SCH ×2 (09:29→21:42)
[2022-03-23] MEDS ORDERED: Metoclopramide HCl 10 MG/2 ML VIAL IVP PRN (12:00)
[2022-03-23] MEDS: Atorvastatin Calcium 20 MG TAB PO SCH (21:43)
[2022-03-23] MEDS: Sotalol HCl 80 MG TAB PO SCH (21:46)
[2022-03-24] MEDS: Levothyroxine Sodium 25 MCG TAB PO SCH (05:39)
[2022-03-24] MEDS ORDERED: Dextrose 5% in Water 1,000 ML IV PRN (05:59)
[2022-03-24] MEDS ORDERED: HumaLOG 300 UNITS/3 ML VIAL SC PRN ×2 (05:59)
[2022-03-24] MEDS ORDERED: Dextrose 50% Abboject 50 ML SYRINGE SLOW IVP PRN (05:59)
[2022-03-24] MEDS: Apixaban 5 MG TAB PO SCH (08:40)
[2022-03-24] MEDS: Sotalol HCl 80 MG TAB PO SCH ×3 (08:41→20:52)
[2022-03-24] MEDS: Cholecalciferol 1,000 UNITS (25 MCG) TAB PO SCH (09:51)
[2022-03-24] MEDS: Folic Acid 1 MG TAB PO SCH (09:51)
[2022-03-24] MEDS: metFORMIN XR 500 MG TAB PO SCH ×2 (09:51→20:52)
[2022-03-24] MEDS: Fish Oil 1,000 MG CAP PO SCH ×3 (09:52→20:52)
[2022-03-24] MEDS: Atorvastatin Calcium 20 MG TAB PO SCH (20:52)
[2022-03-24] MEDS: HYDROcodone/Acetaminophen 5/325 mg Tablet PO PRN (20:53)
[2022-03-25 04:58] LABS: Band 11 % (5-11); Eosinophils 3 % (0-10); Hemoglobin 9.8 g/dL (12.0-16.0); Hypochromia SLIGHT = 6-15 cells (100X) (0-5/hpf); Lymphocytes 17 % (21-51); MDiff Complete? YES; Mean Corpuscular HGB CONC 34.3 g/dL (32.0-36.0); Mean Corpuscular Hemoglobin 33.1 pg (27.0-31.0); Mean Corpuscular Volume 96.5 fl (78.0-98.0); Mean Platelet Volume 7.5 fL (7.4-10.4); Monocytes 9 % (0-10); Neutrophil 59 % (42-75); Nucleated RBC 1 % (0); Platelet Count 397 10x3/uL (130-400); Platelet Morphology Comment Appears Adequate; RBC Distribution Width 13.2 % (11.5-14.5); Reactive Lymphocytes 1 % (0-10); Red Blood Cell (RBC) Count 2.97 mill/uL (4.20-5.40); White Blood Cell (WBC) Count 12.3 10x3/uL (4.8-10.8)
[2022-03-25] MEDS: Levothyroxine Sodium 25 MCG TAB PO SCH (05:25)
[2022-03-25 05:32] LABS: Anion Gap 13 mmol/L (10-20); BUN (Urea Nitrogen) 19 mg/dL (9.8-20.1); Calc. Creatinine Clearance 90 mL/min (70-130); Calcium 8.9 mg/dL (7.8-10.44); Carbon Dioxide 26 mmol/L (23-31); Chloride 102 mmol/L (98-107); Estimated GFR 68; Glucose 93 mg/dL (83-110); Potassium 4.2 mmol/L (3.5-5.1); Sodium 137 mmol/L (136-145)
[2022-03-25] MEDS ORDERED: Midazolam HCl 2 mg/2 ml Vial ONE (08:14)
[2022-03-25] MEDS ORDERED: FENTANYL 50 MCG/ML 1 ML VIAL ONE (08:15)
[2022-03-25] MEDS ORDERED: Lidocaine 1% (PF) 30 ML VIAL ONE (08:15)
[2022-03-25] MEDS ORDERED: Gentamicin 80 MG/2 ML VIAL ONE (08:15)
[2022-03-25] MEDS ORDERED: CEFAZOLIN 1 GM VIAL ONE (08:15)
[2022-03-25] MEDS: metFORMIN XR 500 MG TAB PO SCH ×2 (10:58→21:39)
[2022-03-25] MEDS: Fish Oil 1,000 MG CAP PO SCH ×3 (10:58→21:40)
[2022-03-25] MEDS: Cholecalciferol 1,000 UNITS (25 MCG) TAB PO SCH (10:58)
[2022-03-25] MEDS: Folic Acid 1 MG TAB PO SCH (10:59)
[2022-03-25] MEDS: HYDROcodone/Acetaminophen 5/325 mg Tablet PO PRN ×2 (10:59→19:14)
[2022-03-25] MEDS: Sotalol HCl 80 MG TAB PO SCH ×2 (10:59→21:39)
[2022-03-25] MEDS: Atorvastatin Calcium 20 MG TAB PO SCH (21:40)
[2022-03-26] MEDS: HYDROcodone/Acetaminophen 5/325 mg Tablet PO PRN ×6 (00:51→22:50)
[2022-03-26 04:57] LABS: #Eosinphils 0.3 thou/uL (0.0-0.7); #Lymphocytes 1.6 thou/uL (1.20-3.40); #Monocytes 0.9 thou/uL (0.11-0.59); #Neutrophils 7.3 thou/uL (1.40-6.50); %Basophils 0.3 % (0.0-1.0); %Eosinophils 2.8 % (0.0-10.0); %Lymphocytes 15.9 % (21.0-51.0); %Monocytes 9.1 % (0.0-10.0); %Neutrophils 71.8 % (42.0-75.0); Mean Corpuscular HGB CONC 32.8 g/dL (32.0-36.0); Mean Corpuscular Hemoglobin 32.4 pg (27.0-31.0); Mean Corpuscular Volume 98.9 fl (78.0-98.0); Mean Platelet Volume 7.5 fL (7.4-10.4); Platelet Count 362 10x3/uL (130-400); RBC Distribution Width 13.7 % (11.5-14.5); Red Blood Cell (RBC) Count 3.07 mill/uL (4.20-5.40); White Blood Cell (WBC) Count 10.1 10x3/uL (4.8-10.8)
[2022-03-26 05:07] LABS: Anion Gap 11 mmol/L (10-20); BUN (Urea Nitrogen) 16 mg/dL (9.8-20.1); Calc. Creatinine Clearance 96 mL/min (70-130); Carbon Dioxide 28 mmol/L (23-31); Chloride 102 mmol/L (98-107); Estimated GFR 73; Glucose 97 mg/dL (83-110); Potassium 4.4 mmol/L (3.5-5.1); Sodium 137 mmol/L (136-145)
[2022-03-26] MEDS: Levothyroxine Sodium 25 MCG TAB PO SCH (05:55)
[2022-03-26] MEDS ORDERED: Methotrexate Sodium 2.5 MG TAB PO SCH (09:00)
[2022-03-26] MEDS: Folic Acid 1 MG TAB PO SCH (10:21)
[2022-03-26] MEDS: Cholecalciferol 1,000 UNITS (25 MCG) TAB PO SCH (10:22)
[2022-03-26] MEDS: Fish Oil 1,000 MG CAP PO SCH ×3 (10:22→20:45)
[2022-03-26] MEDS: metFORMIN XR 500 MG TAB PO SCH ×2 (10:22→20:46)
[2022-03-26] MEDS: Sotalol HCl 80 MG TAB PO SCH ×2 (10:22→20:46)
[2022-03-26] MEDS: cloNIDine 0.1 MG TAB PO PRN (16:30)
[2022-03-26] MEDS ORDERED: hydrALAZINE 25 MG TAB PO PRN (17:41)
[2022-03-26] MEDS: Atorvastatin Calcium 20 MG TAB PO SCH (20:45)
[2022-03-26] MEDS: Acetaminophen 325 MG TAB PO PRN (20:49)
[2022-03-27 05:04] LABS: #Eosinphils 0.3 thou/uL (0.0-0.7); #Lymphocytes 1.2 thou/uL (1.20-3.40); #Monocytes 0.8 thou/uL (0.11-0.59); #Neutrophils 7.9 thou/uL (1.40-6.50); %Basophils 0.3 % (0.0-1.0); %Eosinophils 2.7 % (0.0-10.0); %Lymphocytes 11.9 % (21.0-51.0); %Monocytes 7.7 % (0.0-10.0); %Neutrophils 77.5 % (42.0-75.0); Hemoglobin 10.8 g/dL (12.0-16.0); Mean Corpuscular HGB CONC 33.6 g/dL (32.0-36.0); Mean Corpuscular Hemoglobin 33.3 pg (27.0-31.0); Mean Corpuscular Volume 99.1 fl (78.0-98.0); Mean Platelet Volume 7.5 fL (7.4-10.4); Platelet Count 328 10x3/uL (130-400); RBC Distribution Width 13.9 % (11.5-14.5); Red Blood Cell (RBC) Count 3.24 mill/uL (4.20-5.40); White Blood Cell (WBC) Count 10.2 10x3/uL (4.8-10.8)
[2022-03-27] MEDS: Levothyroxine Sodium 25 MCG TAB PO SCH (05:16)
[2022-03-27] MEDS: HYDROcodone/Acetaminophen 5/325 mg Tablet PO PRN ×4 (05:16→21:16)
[2022-03-27 05:44] LABS: Anion Gap 13 mmol/L (10-20); BUN (Urea Nitrogen) 16 mg/dL (9.8-20.1); Calc. Creatinine Clearance 97 mL/min (70-130); Carbon Dioxide 28 mmol/L (23-31); Chloride 101 mmol/L (98-107); Estimated GFR 74; Glucose 93 mg/dL (83-110); Potassium 4.1 mmol/L (3.5-5.1); Sodium 138 mmol/L (136-145)
[2022-03-27] MEDS: metFORMIN XR 500 MG TAB PO SCH ×2 (09:08→21:16)
[2022-03-27] MEDS: Cholecalciferol 1,000 UNITS (25 MCG) TAB PO SCH (09:08)
[2022-03-27] MEDS: Folic Acid 1 MG TAB PO SCH (09:08)
[2022-03-27] MEDS: Fish Oil 1,000 MG CAP PO SCH ×3 (09:08→21:16)
[2022-03-27] MEDS: Sotalol HCl 80 MG TAB PO SCH ×2 (09:09→21:16)
[2022-03-27] MEDS: Atorvastatin Calcium 20 MG TAB PO SCH (21:16)
[2022-03-27] MEDS: Acetaminophen 325 MG TAB PO PRN (23:20)
[2022-03-28] MEDS: HYDROcodone/Acetaminophen 5/325 mg Tablet PO PRN ×2 (03:08→10:15)
[2022-03-28 04:48] LABS: #Eosinphils 0.3 thou/uL (0.0-0.7); #Lymphocytes 1.4 thou/uL (1.20-3.40); #Monocytes 0.6 thou/uL (0.11-0.59); #Neutrophils 6.6 thou/uL (1.40-6.50); %Basophils 0.3 % (0.0-1.0); %Eosinophils 2.9 % (0.0-10.0); %Lymphocytes 15.5 % (21.0-51.0); %Monocytes 6.8 % (0.0-10.0); %Neutrophils 74.5 % (42.0-75.0); Hemoglobin 10.6 g/dL (12.0-16.0); Mean Corpuscular HGB CONC 32.4 g/dL (32.0-36.0); Mean Corpuscular Hemoglobin 32.7 pg (27.0-31.0); Mean Platelet Volume 7.3 fL (7.4-10.4); Platelet Count 316 10x3/uL (130-400); Red Blood Cell (RBC) Count 3.25 mill/uL (4.20-5.40); White Blood Cell (WBC) Count 8.9 10x3/uL (4.8-10.8)
[2022-03-28 05:16] LABS: Anion Gap 12 mmol/L (10-20); BUN (Urea Nitrogen) 16 mg/dL (9.8-20.1); Calc. Creatinine Clearance 104 mL/min (70-130); Calcium 8.8 mg/dL (7.8-10.44); Carbon Dioxide 28 mmol/L (23-31); Chloride 101 mmol/L (98-107); Estimated GFR 81; Glucose 97 mg/dL (83-110); Sodium 137 mmol/L (136-145)
[2022-03-28] MEDS: Levothyroxine Sodium 25 MCG TAB PO SCH (05:47)
[2022-03-28] MEDS ORDERED: Apixaban 5 MG TAB PO SCH (09:00)
[2022-03-28] MEDS: Fish Oil 1,000 MG CAP PO SCH ×2 (10:06→14:18)
[2022-03-28] MEDS: Folic Acid 1 MG TAB PO SCH (10:07)
[2022-03-28] MEDS: Cholecalciferol 1,000 UNITS (25 MCG) TAB PO SCH (10:07)
[2022-03-28] MEDS: Sotalol HCl 80 MG TAB PO SCH (10:07)
[2022-03-28] MEDS: metFORMIN XR 500 MG TAB PO SCH (10:07)
[2022-03-28 16:33] VITALS: BP 182/89; TEMP 98
[2022-03-28] MEDS: cloNIDine 0.1 MG TAB PO PRN (16:43)
[2022-03-28] MEDS: Acetaminophen 325 MG TAB PO PRN (17:53)
== END 2022-03-28 18:59 | disposition home or self-care (01) | DRG 243 ==
LOC: ERS 14:13 → 2NO 17:23
PROVIDERS: ADMIT Internal Medicine; ATTEND Internal Medicine
PROC: 5A2204Z Restoration of Cardiac Rhythm, Single (ICD-10-PCS; 2022-03-22)
PROC: 0JH607Z Insertion of Cardiac Resynchronization Pacemaker Pulse Generator into Chest Subcutaneous Tissue and Fascia, Open Approach (ICD-10-PCS; principal; 2022-03-25)
PROC: 02H60JZ Insertion of Pacemaker Lead into Right Atrium, Open Approach (ICD-10-PCS; 2022-03-25)
PROC: 02HK0JZ Insertion of Pacemaker Lead into Right Ventricle, Open Approach (ICD-10-PCS; 2022-03-25)
DX: I48.4 Atypical atrial flutter (principal); C20 Malignant neoplasm of rectum; I48.0 Paroxysmal atrial fibrillation; Z20.822 Contact with and (suspected) exposure to COVID-19; M06.9 Rheumatoid arthritis, unspecified; I25.10 Atherosclerotic heart disease of native coronary artery without angina pectoris; E03.9 Hypothyroidism, unspecified; E11.9 Type 2 diabetes mellitus without complications; I47.1 Supraventricular tachycardia; I49.5 Sick sinus syndrome; I10 Essential (primary) hypertension; D69.6 Thrombocytopenia, unspecified; I42.8 Other cardiomyopathies; Z79.890 Hormone replacement therapy; Z79.82 Long term (current) use of aspirin; Z79.899 Other long term (current) drug therapy; Z79.84 Long term (current) use of oral hypoglycemic drugs; Z79.01 Long term (current) use of anticoagulants; Z79.52 Long term (current) use of systemic steroids; Z95.5 Presence of coronary angioplasty implant and graft
CPT/HCPCS: 33208; 36415; 36416; 71045; 80048; 80053; 83735; 83880; 84484; 85025; 85610; 85730; 92960; 93005; 93010; 93798; 96374; 96375; 99152; 99153; 99156; 99157; J0153; J0690; J1580; J2001; J2250; J2765; J3010; J3475; J8610; U0003; U0005

== ENCOUNTER 2023-10-18 13:39 | Outpatient (CLI) | payer OTHER | END 2023-10-18 13:40 | disposition home or self-care (01) | LOC: ULT 13:39 | PROVIDERS: ATTEND Internal Medicine Nephrology | DX: N18.9 Chronic kidney disease, unspecified (principal) | CPT/HCPCS: 76770 ==